=== PATIENT | female | born 1965 | race American Indian/Alaskan Native ===

== ENCOUNTER 2017-09-15 16:56 | Emergency (ER) | payer MEDICAID ==
[2017-09-15 17:31] VITALS: BP 155/93
[2017-09-15] MEDS ORDERED: DELTASONE PO ONE (18:17)
[2017-09-15] MEDS ORDERED: BENADRYL PO ONE (18:17)
--- NOTE | 2017-09-15 18:22 | Emergency Department Report ---
HPI - General Chief Complaint: Skin Rash Time Seen by Provider: 09/15/17 18:02 - HPI HPI: She is a 52-year-old female who presents to ED complaining of insect bites all on her arms. Patient states she was at her friend's house and was sleeping on the couch and woke up this morning and noticed the bumps all over her hands. Patient states they're itchy. Patient also mentioned that she has a history of herniated disc in her lumbar region that has been her episodes of cold weather started. She denies any fall, fever, chills, nausea vomiting, abdominal pain chest pain or any other problems. ED Past Medical Hx - Past Medical History Hx Arthritis: Yes (RA) Hx Headaches / Migraines: Yes Hx Seizures: Yes Hx Asthma: Yes Additional medical history: angina- recent dx of breast CA 06/2017- untreated - Surgical History Additional Surgical History: 2knee surgeries,lower back Fx with surgery repair - Social History Smoking Status: Unknown if ever smoked Substance Use Type: None - Medications Home Medications: Home Medications Medication Instructions Recorded Confirmed Last Taken Type Calamine/Zinc 8-8% [Calamine] 1 applic TP DAILY #1 bottle 09/15/17 Unknown Rx Hydroxyzine HCl 10 mg PO QHS #20 tablet 09/15/17 Unknown Rx Naproxen [Naprosyn] 500 mg PO BID #30 tablet 09/15/17 Unknown Rx ED Review of Systems ROS: Stated complaint: BED BUGS Other details as noted in HPI Constitutional: denies: chills, fever Eyes: denies: eye pain, eye discharge, vision change ENT: denies: ear pain, throat pain, hearing loss Respiratory: denies: cough, shortness of breath, wheezing Cardiovascular: denies: chest pain, palpitations Endocrine: no symptoms reported Gastrointestinal: denies: abdominal pain, nausea, vomiting, diarrhea Genitourinary: denies: urgency, dysuria, discharge Musculoskeletal: denies: back pain, joint swelling, arthralgia Skin: rash, pruritus. denies: lesions Neurological: denies: headache, weakness, numbness, paresthesias, confusion Psychiatric: denies: anxiety, depression Hematological/Lymphatic: denies: easy bleeding, easy bruising, swollen glands Physical Exam - Physical Exam Vital Signs: Vital Signs 09/15/17 17:25 Temperature 98.4 F Pulse Rate 95 H Respiratory 18 Rate Blood Pressure 155/93 O2 Sat by Pulse 100 Oximetry Physical Exam: GENERAL: Alert and oriented x3, no apparent distress, Normal Gait, atraumatic. HEAD: Head is normocephalic and a-traumatic. NOSE: Nose symetrical, Nontender,Nares appeared normal. MOUTH:Mouth is well hydrated and without lesions. NECK: Supple. Non edematous, No lymphadenopathy No C-spine tenderness LUNGS: Symetrical with respiration, No wheezing, no rales or crackles, CTAB. HEART: S1, S2 present, regular rate and rhythm without murmur, no rubs, no gallops. Non tender to palpation BACK: Full range of motion, no spinal tenderness, tender to palpation at the lumbar region. She was able to bend and touch her toes but elicits some pain NEUROLOGIC: The patient is cooperative with no focal neurologic deficits. PSYCHIATRIC: Mood is congruent with affect, denies suicidal or homicidal ideations. SKIN: Red, generalized, raised pinpoint lesions consistent with an insect bite seen on bilateral arms and some on the legs. Warm and dry, No other lesions, No ulceration or induration present. ED Course Vital Signs 09/15/17 17:25 Temperature 98.4 F Pulse Rate 95 H Respiratory 18 Rate Blood Pressure 155/93 O2 Sat by Pulse 100 Oximetry ED Medical Decision Making - Medical Decision Making 52 year-old female present with insect bite ED course: Prednisone and Benadryl given [facility] ED. I discussed the patient to make sure she discards of clothes that she had on patient was on the couch. I discussed with the patient not to take those clothings his into her home. I discussed the patient was sent home on hydroxyzine to help with the itching in lotion to apply topically to help the patient during the day. I discussed the patient I'll give her some naproxen 500 mg to help with her back pain. Vital Signs are normal , patient is in acute distress she had an uneventful ED stay. This patient will follow-up with the primary care physician is referred while she is in town. Critical care attestation.: If time is entered above; I have spent that time in minutes in the direct care of this critically ill patient, excluding procedure time. ED Disposition Clinical Impression: Insect bite Qualifiers: Encounter type: initial encounter Qualified Code(s): W57.XXXA - Bitten or stung by nonvenomous insect and other nonvenomous arthropods, initial encounter Bed bug bite Qualifiers: Encounter type: initial encounter Qualified Code(s): W57.XXXA - Bitten or stung by nonvenomous insect and other nonvenomous arthropods, initial encounter Disposition: TO HOME OR SELFCARE Is pt being admited?: No Does the pt Need Aspirin: No Condition: Stable Instructions: Insect Bite or Sting (ED) Additional Instructions: Make sure to follow up with the primary care physician as discussed. Take all your medications as you've been prescribed. If you have any worsening symptoms or develop new symptoms please return to ED immediately. Sure you washed her clothes U lot on when you on the couch separately Do not go into home with the same clothing to prevent spread to your home Prescriptions: Hydroxyzine HCl 10 mg PO QHS #20 tablet Calamine/Zinc 8-8% [Calamine] 1 applic TP DAILY #1 bottle Naproxen [Naprosyn] 500 mg PO BID #30 tablet Referrals: [facility] [Outside] - 3-5 Days [facility] [Outside] - 3-5 Days [facility] [Outside] - 3-5 Days Forms: Accompanied Note, Work/School Release Form(ED) Time of Disposition: 18:19
== END 2017-09-15 18:47 | disposition home or self-care (01) ==
LOC: ED 16:56
DX: S40.862A Insect bite (nonvenomous) of left upper arm, initial encounter (principal); S40.861A Insect bite (nonvenomous) of right upper arm, initial encounter; S80.862A Insect bite (nonvenomous), left lower leg, initial encounter; S80.861A Insect bite (nonvenomous), right lower leg, initial encounter; G43.909 Migraine, unspecified, not intractable, without status migrainosus; M06.9 Rheumatoid arthritis, unspecified; J45.909 Unspecified asthma, uncomplicated; C50.919 Malignant neoplasm of unspecified site of unspecified female breast; Z88.0 Allergy status to penicillin; Z91.040 Latex allergy status; W57.XXXA Bitten or stung by nonvenomous insect and other nonvenomous arthropods, initial encounter; Y93.84 Activity, sleeping; Y99.8 Other external cause status; Y92.009 Unspecified place in unspecified non-institutional (private) residence as the place of occurrence of the external cause
CPT/HCPCS: 99282; J7512